=== PATIENT | male | born 1985 | race Caucasian/White ===

== ENCOUNTER 2017-07-13 14:44 | Inpatient (IN) | payer BC ==
[~2017-07-13] VITALS: Ht 182.9 cm; Wt 91.3 kg
[2017-07-13 14:54] VITALS: BP 167/84; PULSE 81; RESP 16; TEMP 98.4; O2SAT 99
[2017-07-13] MEDS ORDERED: ST JOHN S WORT (15:04)
[2017-07-13] MEDS ORDERED: MULTTAB67 PO (15:04)
[2017-07-13] MEDS ORDERED: VITA1000 PO (15:04)
[2017-07-13] MEDS ORDERED: FISHCAP4 PO (15:04)
[2017-07-13] MEDS ORDERED: SODIUM CHLOR 0.9% 1000 ML INJ 1,000 ML IV ONE (15:05)
[2017-07-13] MEDS ORDERED: PROCHLORPERAZINE INJ 10 MG/2 ML VIAL IVP ONE (15:15)
[2017-07-13] MEDS ORDERED: MORPHINE SULFATE 4 MG/ML INJ IV PUSH ONE (15:15)
[2017-07-13] MEDS ORDERED: diphenhydrAMINE HCL 50 MG/ML VIAL IVP ONE (15:15)
[2017-07-13] MEDS ORDERED: SODIUM CHLORIDE 0.9% FLUSH 10 ML FLUSH IVF PRN (15:15)
--- NOTE | 2017-07-13 15:18 | PD ---
HPI Chief Complaint: Headache Time Seen by Provider: 14:49 Travel History International Travel<30 days: No Contact w/Intl Traveler<30days: No Traveled to known affect area: No History of Present Illness HPI The patient is a 31-year-old male who presents to the emergency department for headache. The patient was driving yesterday, sitting in traffic , when he developed a headache. The patient's headache started gradually, is located posterior aspect, now radiates to the bifrontal temporal area behind the eyes bilaterally. The patient states he went home and took some ibuprofen with minimal relief. The patient awakened this morning and continued to have a headache. He now complains of some posterior neck pain of the trapezius area that radiates into the head. He states he was driving his car earlier today and started to develop photophobia. The patient took Excedrin one hour prior to arrival. Patient states he has no trauma to the head or neck, however, was digging a hole several days ago and thinks his posterior neck pain may be secondary to digging several days ago. The patient denies any known history of meningitis, encephalitis, subarachnoid hemorrhage, or migraine. The patient was seen in urgent care earlier today and it was noted that his temperature was 100.6 be a temporal scan and EMS was called to transfer him to the emergency department for possible meningitis/encephalitis. He denies any viral type symptoms, does complain of a headache with mild photophobia and some posterior neck pain, but denies any fever prior to the temporal scan. In the emergency department [facility] oral temperature was 98.6. The patient's , via phone, states the patient may have been exposed to ticks where he lives in [place] and was worried about Lyme disease. He does complain of generalized behind the knee, but denies any bulls eye rash. PFSH Past Medical History Integumentary: Yes (tinea versicolor) Past Surgical History Oral Surgery: Yes (dental surgery) Social History Alcohol Use: No Tobacco Use: No Substance Use: No Allergies-Medications (Allergen,Severity, Reaction): Coded Allergies: Penicillins (Verified Allergy, Unknown, 07/13/17) Reported Meds & Prescriptions Reported Meds & Active Scripts Active Reported Fish Oil + D3 (Fish Oil-Cholecalciferol) 1,200-1,000 Mg-Unit Cap 1 Cap PO DAILY [rene's wort] Multiple Vitamin 1 Tab 1 Tab PO DAILY Vitamin D-1000 (Cholecalciferol) 1,000 Unit Tab 1,000 Units PO DAILY Review of Systems Except as stated in HPI: all other systems reviewed are Neg General / Constitutional: No: Fever Eyes: Positive: Photophobia HENT: Positive: Headaches, Neck Pain Gastrointestinal: No: Nausea, Vomiting Skin: Positive Rash (history of tinea versicolor) Neurologic: Positive: Headache Physical Exam Narrative GENERAL: Awake, alert, pleasant 31-year-old male who appears his stated age and is in no acute respiratory distress. SKIN: Focused skin assessment warm/dry. Hyperlipidemia and it patches to the back consistent with a tinea versicolor versus vitiligo. HEAD: Atraumatic. Normocephalic. EYES: Pupils equal and round. Pupils are 5 mm bilateral and reactive. ENT: No nasal bleeding or discharge. Mucous membranes pink and moist. NECK: Trachea midline. No JVD. No true meningeal signs, patient is able to put his chin to his chest and look up. CARDIOVASCULAR: Regular rate and rhythm. No murmur appreciated. RESPIRATORY: No accessory muscle use. Clear to auscultation. Breath sounds equal bilaterally. GASTROINTESTINAL: Abdomen soft, non-tender, nondistended. MUSCULOSKELETAL: No obvious deformities. No clubbing. No cyanosis. No edema. NEUROLOGICAL: Awake and alert. No obvious cranial nerve deficits. Motor grossly within normal limits. Normal speech. Nonfocal. Oriented 4. Follows commands without difficulty. PSYCHIATRIC: Appropriate mood and affect; insight and judgment normal. Data Data Last Documented VS Orders Orders Complete Blood Count With Diff (07/13/17 15:05) Basic Metabolic Panel (Bmp) (07/13/17 15:05) Prothrombin Time / Inr (Pt) (07/13/17 15:05) Act Partial Throm Time (Ptt) (07/13/17 15:05) Ct Brain W/O Iv Contrast(Rout) (07/13/17 15:05) Ecg Monitoring (07/13/17 15:05) Iv Access Insert/Monitor (07/13/17 15:05) Oximetry (07/13/17 15:05) Sodium Chloride 0.9% Flush (Ns Flush) (07/13/17 15:15) Prochlorperazine Inj (Compazine Inj) (07/13/17 15:15) Diphenhydramine Inj (Benadryl Inj) (07/13/17 15:15) Sodium Chlor 0.9% 1000 Ml Inj (Ns 1000 M (07/13/17 15:05) Morphine Inj (Morphine Inj) (07/13/17 15:15) Ketorolac Inj (Toradol Inj) (07/13/17 17:30) Urinalysis - C+S If Indicated (07/13/17 17:49) Influenzae A/B Antigen (07/13/17 17:49) Chest, Single Ap (07/13/17 ) Lewc-Cdadd-Jyvz 325-50-40 Mg (Fioricet 3 (07/13/17 18:00) Lidocaine 1% Inj (50 Ml) (Xylocaine 1% I (07/13/17 18:00) Csf Cell Count + Differential (07/13/17 18:26) Glucose, Csf (07/13/17 18:26) Total Protein, Csf (07/13/17 18:26) Csf Culture And Gram Stain (07/13/17 18:26) Vancomycin Inj (Vancomycin Inj) (07/13/17 19:45) Ceftriaxone Inj (Rocephin Inj) (07/13/17 19:45) Acyclovir Inj (Zovirax Inj) (07/13/17 19:45) Csf Hsv I/Ii Dna,Pcr (07/13/17 19:35) Admit Order (Ed Use Only) (07/13/17 ) Isolation 08,20 (07/13/17 20:02) Labs Laboratory Tests Test 07/13/17 15:11 07/13/17 17:55 07/13/17 18:29 White Blood Count 8.2 TH/MM3 Red Blood Count 5.09 MIL/MM3 Hemoglobin 14.6 GM/DL Hematocrit 44.2 % Mean Corpuscular Volume 86.8 FL Mean Corpuscular Hemoglobin 28.6 PG Mean Corpuscular Hemoglobin Concent 32.9 % Red Cell Distribution Width 12.4 % Platelet Count 152 TH/MM3 Mean Platelet Volume 9.3 FL Neutrophils (%) (Auto) 85.5 % Lymphocytes (%) (Auto) 9.9 % Monocytes (%) (Auto) 3.8 % Eosinophils (%) (Auto) 0.3 % Basophils (%) (Auto) 0.5 % Neutrophils # (Auto) 7.1 TH/MM3 Lymphocytes # (Auto) 0.8 TH/MM3 Monocytes # (Auto) 0.3 TH/MM3 Eosinophils # (Auto) 0.0 TH/MM3 Basophils # (Auto) 0.0 TH/MM3 CBC Comment DIFF FINAL Differential Comment Prothrombin Time 10.6 SEC Prothromb Time International Ratio 1.0 RATIO Activated Partial Thromboplast Time 27.6 SEC Blood Urea Nitrogen 19 MG/DL Creatinine 1.00 MG/DL Random Glucose 111 MG/DL Calcium Level 8.8 MG/DL Sodium Level 136 MEQ/L Potassium Level 3.7 MEQ/L Chloride Level 103 MEQ/L Carbon Dioxide Level 25.8 MEQ/L Anion Gap 7 MEQ/L Estimat Glomerular Filtration Rate 87 ML/MIN Urine Color YELLOW Urine Turbidity CLEAR Urine pH 6.5 Urine Specific [place] 1.005 Urine Protein NEG mg/dL Urine Glucose (UA) NEG mg/dL Urine Ketones NEG mg/dL Urine Occult Blood NEG Urine Nitrite NEG Urine Bilirubin NEG Urine Leukocyte Esterase NEG Urine Squamous Epithelial Cells 0-5 /hpf Microscopic Urinalysis Comment CULT NOT INDICATED CSF Volume (Tube 1) 2.0 ML CSF Supernatant Color (tube 1) CLEAR CSF Gross Blood (Tube 1) 0 CSF Volume (Tube 2) 1.5 ML CSF Supernatant Color (tube 2) CLEAR CSF Gross Blood (Tube 2) 0 CSF Volume (Tube 3) 1.5 ML CSF Supernatant Color (tube 3) CLEAR CSF Gross Blood (Tube 3) 0 CSF Volume (Tube 4) 2.0 ML CSF Supernatant Color (tube 4) CLEAR CSF Gross Blood (Tube 4) 0 CSF WBC (Tube 4) 12 /MM3 CSF RBC (Tube 4) 5 /MM3 CSF Neutrophils 92 % CSF Lymphocytes 8 % CSF Monocytes 0 % CSF Eosinophils 0 % CSF Glucose 60 MG/DL CSF Total Protein 55.8 MG/DL CSF VDRL NON-REACTIVE Herpes Simplex Virus I DNA (PCR) Negative Herpes Simplex Virus II DNA (PCR) Negative MDM Medical Decision Making Medical Screen Exam Complete: Yes Emergency Medical Condition: Yes Medical Record Reviewed: Yes Interpretation(s) Laboratory Tests Test 07/13/17 15:11 White Blood Count 8.2 TH/MM3 Red Blood Count 5.09 MIL/MM3 Hemoglobin 14.6 GM/DL Hematocrit 44.2 % Mean Corpuscular Volume 86.8 FL Mean Corpuscular Hemoglobin 28.6 PG Mean Corpuscular Hemoglobin Concent 32.9 % Red Cell Distribution Width 12.4 % Platelet Count 152 TH/MM3 Mean Platelet Volume 9.3 FL Neutrophils (%) (Auto) 85.5 % Lymphocytes (%) (Auto) 9.9 % Monocytes (%) (Auto) 3.8 % Eosinophils (%) (Auto) 0.3 % Basophils (%) (Auto) 0.5 % Neutrophils # (Auto) 7.1 TH/MM3 Lymphocytes # (Auto) 0.8 TH/MM3 Monocytes # (Auto) 0.3 TH/MM3 Eosinophils # (Auto) 0.0 TH/MM3 Basophils # (Auto) 0.0 TH/MM3 CBC Comment DIFF FINAL Differential Comment Prothrombin Time 10.6 SEC Prothromb Time International Ratio 1.0 RATIO Activated Partial Thromboplast Time 27.6 SEC Blood Urea Nitrogen 19 MG/DL Creatinine 1.00 MG/DL Random Glucose 111 MG/DL Calcium Level 8.8 MG/DL Sodium Level 136 MEQ/L Potassium Level 3.7 MEQ/L Chloride Level 103 MEQ/L Carbon Dioxide Level 25.8 MEQ/L Anion Gap 7 MEQ/L Estimat Glomerular Filtration Rate 87 ML/MIN Differential Diagnosis Differential diagnosis includes tension headache, migraine, temporal arteritis, encephalitis, meningitis, subarachnoid hemorrhage, intracranial hemorrhage, intracranial tumor, viral syndrome. Narrative Course IV was established, labs were drawn and sent, and the patient was placed on cardiac telemetry monitoring and continuous pulse oximetry monitoring. CT of the brain was obtained. The patient was administered morphine, Compazine, Benadryl, and IV fluids. The patient is afebrile in the emergency department, and does not have any obvious meningeal signs, I doubt meningitis. If the patient did have meningitis, most likely would be viral as patient is nontoxic appearing. Laboratory evaluation is unremarkable, there is no leukopenia or leukocytosis. Platelets are unremarkable, I doubt tick borne disease. CT the brain appeared negative, awaiting radiology official read. I had a discussion with the patient regarding performing a lumbar puncture. Temperature was reevaluated, was 98.8. His headache went from a 5/10 to a 1/10. I had a discussion with the patient regarding the risk and benefits of lumbar puncture, he would like to hold on lumbar puncture. Therefore, the patient will be reevaluated for continuing headache, if it improves and there is no fever and patient does not want lumbar puncture, he will be discharged home. I had a discussion with the oncoming physician, Dr. Walker, at 4 PM in regards to reevaluation. Diagnosis Primary Impression: Cephalgia Qualified Codes: R51 - Headache Patient Instructions: General Instructions Additional Instructions: Please provide the patient a copy of his CT results and lab results at discharge. Follow-up with your primary physician. Return if symptoms worsen or progress. Disposition: DISCHARGE HOME Condition: Stable Matty Hannah MD Jul 13, 2017 15:18
[2017-07-13 15:23] LABS: AUTOMATED NEUTROPHIL # 7.1 TH/MM3 (1.8-7.7); BASOPHIL % 0.5 % (0.0-2.0); EOSINOPHIL % 0.3 % (0.0-4.0); HEMATOCRIT 44.2 % (39.0-51.0); LYMPH % 9.9 % (9.0-44.0); LYMPHOCYTE # 0.8 TH/MM3 (1.0-4.8); MEAN CELL VOLUME 86.8 FL (80.0-100.0); MEAN CORPUSCULAR HEMOGLOBIN 28.6 PG (27.0-34.0); MEAN CORPUSCULAR HGB CONC 32.9 % (32.0-36.0); MONO % 3.8 % (0.0-8.0); NEUT % 85.5 % (16.0-70.0); PLATELET COUNT 152 TH/MM3 (150-450); RED BLOOD COUNT 5.09 MIL/MM3 (4.50-5.90); RED CELL DISTRIBUTION WIDTH 12.4 % (11.6-17.2); WHITE BLOOD COUNT 8.2 TH/MM3 (4.0-11.0)
[2017-07-13 15:26] LABS: HEMO FLAGS DIFF FINAL
[2017-07-13 15:30] LABS: POTASSIUM 3.7 MEQ/L (3.5-5.1)
[2017-07-13 15:34] LABS: BICARBONATE 25.8 MEQ/L (21.0-32.0)
[2017-07-13 15:35] LABS: APTT (PATIENT) 27.6 SEC (24.3-30.1); PROTHROMBIN TIME - PATIENT 10.6 SEC (9.8-11.6)
[2017-07-13 15:45] VITALS: TEMP 98.8; O2SAT 98
--- NOTE | 2017-07-13 15:59 | RADRPT ---
EXAM DATE/TIME: 07/13/2017 15:27 [facility] COMPARISON: No previous studies available for comparison. INDICATIONS : Headache and light sensitivity. RADIATION DOSE: 57.88 CTDIvol (mGy) MEDICAL HISTORY : None SURGICAL HISTORY : None. ENCOUNTER: Initial ACUITY: 1 day PAIN SCALE: 5/10 LOCATION: cranial TECHNIQUE: Multiple contiguous axial images were obtained of the head. Using automated exposure control and adj ustment of the mA and/or kV according to patient size, radiation dose was kept as low as reasonably a chievable to obtain optimal diagnostic quality images. DICOM format image data is available electro nically for review and comparison. FINDINGS: CEREBRUM: The ventricles are normal for age. No evidence of midline shift, mass lesion, hemorrhage or acute in farction. No extra-axial fluid collections are seen. POSTERIOR FOSSA: The cerebellum and brainstem are intact. The 4th ventricle is midline. The cerebellopontine angle i s unremarkable. EXTRACRANIAL: The visualized portion of the orbits is intact. SKULL: The calvaria is intact. No evidence of skull fracture. CONCLUSION: Normal examination. Afshin Mercer MD on July 13, 2017 at 15:57 Board Certified Radiologist. This report was verified electronically.
[2017-07-13 16:51] VITALS: BP 160/81; PULSE 69; RESP 18; TEMP 99.2; O2SAT 98
[2017-07-13] MEDS ORDERED: KETOROLAC TROMETHAMINE 30 MG/ML (IVP) VIAL IV PUSH ONE (17:30)
[2017-07-13] MEDS ORDERED: LIDOCAINE HCL 1% 50 ML VIAL INFIL ONE (18:00)
[2017-07-13] MEDS ORDERED: ACETAMIN 325 MG/BUTALBITAL 50 MG/CAFFEINE 40 MG TAB PO ONE (18:00)
--- NOTE | 2017-07-13 18:06 | RADRPT ---
EXAM DATE/TIME: 07/13/2017 17:57 [facility] COMPARISON: No previous studies available for comparison. INDICATIONS : Fever. MEDICAL HISTORY : None. SURGICAL HISTORY : None. ENCOUNTER: Initial ACUITY: 1 day PAIN SCORE: 0/10 LOCATION: Bilateral chest FINDINGS: A single view of the chest demonstrates the lungs to be symmetrically aerated without evidence of mas s, infiltrate or effusion. The cardiomediastinal contours are unremarkable. Osseous structures are intact. CONCLUSION: No acute disease. Afshin Mercer MD on July 13, 2017 at 18:04 Board Certified Radiologist. This report was verified electronically.
[2017-07-13 18:11] LABS: BLOOD, URINE NEG (NEG); GLUCOSE,URINE NEG (NEG); KETONE, URINE NEG (NEG); NITRITE,URINE NEG (NEG); PH, URINE 6.5 (5.0-8.5)
[2017-07-13 18:34] LABS: SQUAMOUS EPITHELIAL CELL URINE 0-5 /hpf (0-5); URINE COLOR YELLOW (YELLW/STRAW)
[2017-07-13 18:35] LABS: COMMENT (UR) CULT NOT INDICATED; CULTURE IF INDICATED CULT NOT INDICATED
[2017-07-13 18:55] LABS: GROSS BLOOD TUBE #1 0 (0); GROSS BLOOD TUBE #2 0 (0); GROSS BLOOD TUBE #3 0 (0); GROSS BLOOD TUBE #4 0 (0); SUPERNATE COLOR TUBE #1 CLEAR (CLEAR); SUPERNATE COLOR TUBE #2 CLEAR (CLEAR); SUPERNATE COLOR TUBE #3 CLEAR (CLEAR); SUPERNATE COLOR TUBE #4 CLEAR (CLEAR); VOLUME TUBE # 2 1.5 ML; VOLUME TUBE # 3 1.5 ML; WBC TUBE #4 12 /MM3 (0-10)
[2017-07-13 19:26] VITALS: PULSE 87; RESP 16; O2SAT 97
[2017-07-13 19:26] LABS: CSF EOSINOPHILS 0 %; CSF LYMPHOCYTES 8 %; CSF MONOCYTES 0 %; CSF NEUTROPHILS 92 %
[2017-07-13] MEDS ORDERED: SODIUM CHLORIDE 0.9% IV ONE (19:45)
[2017-07-13] MEDS ORDERED: VANCOMYCIN INJ 1,000 MG in SODIUM CHLOR 0.9% 250 ML INJ 250 ML IV ONE (19:45)
[2017-07-13] MEDS ORDERED: ACYCLOVIR IV ONE (19:45)
[2017-07-13] MEDS ORDERED: cefTRIAXone INJ 2,000 MG in SODIUM CHLORIDE 0.9% INJ 100 ML IV ONE (19:45)
[2017-07-13 19:58] VITALS: BP 140/54; PULSE 77; RESP 16; O2SAT 97
--- NOTE | 2017-07-13 20:12 | PD ---
Physical Exam Narrative Patient signed out to me by Dr. Hannah. Please see his documentation for complete details. Briefly, patient is a 31-year-old male comes in complaining of fever and headache. He says this started last night. He says the headache is severe, mostly around the front and in his temples. He says he also is experiencing some neck stiffness. He denies any other symptoms. He denies cough, chest pain , shortness of breath, urinary symptoms, nausea, vomiting. While patient was here, he became febrile again to 101. He started to complain of severe headache once again. He was given a dose of Toradol and Fioricet. Patient did not experience any neurologic abnormalities on exam. Data Data Last Documented VS Vital Signs Date Time Temp Pulse Resp B/P (MAP) Pulse Ox O2 Delivery O2 Flow Rate FiO2 07/13/17 19:58 77 16 140/54 (82) 97 Room Air 07/13/17 16:51 99.2 Orders Orders Complete Blood Count With Diff (07/13/17 15:05) Basic Metabolic Panel (Bmp) (07/13/17 15:05) Prothrombin Time / Inr (Pt) (07/13/17 15:05) Act Partial Throm Time (Ptt) (07/13/17 15:05) Ct Brain W/O Iv Contrast(Rout) (07/13/17 15:05) Ecg Monitoring (07/13/17 15:05) Iv Access Insert/Monitor (07/13/17 15:05) Oximetry (07/13/17 15:05) Sodium Chloride 0.9% Flush (Ns Flush) (07/13/17 15:15) Prochlorperazine Inj (Compazine Inj) (07/13/17 15:15) Diphenhydramine Inj (Benadryl Inj) (07/13/17 15:15) Sodium Chlor 0.9% 1000 Ml Inj (Ns 1000 M (07/13/17 15:05) Morphine Inj (Morphine Inj) (07/13/17 15:15) Ketorolac Inj (Toradol Inj) (07/13/17 17:30) Urinalysis - C+S If Indicated (07/13/17 17:49) Influenzae A/B Antigen (07/13/17 17:49) Chest, Single Ap (07/13/17 ) Jjmu-Uvnfl-Bvap 325-50-40 Mg (Fioricet 3 (07/13/17 18:00) Lidocaine 1% Inj (50 Ml) (Xylocaine 1% I (07/13/17 18:00) Csf Cell Count + Differential (07/13/17 18:26) Glucose, Csf (07/13/17 18:26) Total Protein, Csf (07/13/17 18:26) Csf Culture And Gram Stain (07/13/17 18:26) Vancomycin Inj (Vancomycin Inj) (07/13/17 19:45) Ceftriaxone Inj (Rocephin Inj) (07/13/17 19:45) Acyclovir Inj (Zovirax Inj) (07/13/17 19:45) Csf Hsv I/Ii Dna,Pcr (07/13/17 19:35) Admit Order (Ed Use Only) (07/13/17 ) Isolation 08,20 (07/13/17 20:02) Place In Observation (07/13/17 ) Vital Signs (Adult) Q4H (07/13/17 20:02) Activity Oob With Assistance (07/13/17 20:02) Aws Architect / Telemetry .CONTINUOUS (07/13/17 20:02) Diet Heart Healthy (07/14/17 Breakfast) Sodium Chlor 0.9% 1000 Ml Inj (Ns 1000 M (07/13/17 20:02) Sodium Chloride 0.9% Flush (Ns Flush) (07/13/17 20:15) Sodium Chloride 0.9% Flush (Ns Flush) (07/13/17 21:00) Basic Metabolic Panel (Bmp) (07/14/17 06:00) Complete Blood Count With Diff (07/14/17 06:00) Naloxone Inj (Narcan Inj) (07/13/17 20:15) Vancomycin Consult Pharmacy (Vancomycin (07/13/17 20:15) Ceftriaxone Inj (Rocephin Inj) (07/14/17 08:00) Acyclovir Inj (Zovirax Inj) (07/14/17 04:00) Dexamethasone Inj (Decadron Inj) (07/13/17 20:15) ^ Other Nursing Orders (07/13/17 20:11) Consult Infectious Disease (07/13/17 ) Labs Laboratory Tests Test 07/13/17 15:11 07/13/17 17:55 07/13/17 18:29 White Blood Count 8.2 TH/MM3 Red Blood Count 5.09 MIL/MM3 Hemoglobin 14.6 GM/DL Hematocrit 44.2 % Mean Corpuscular Volume 86.8 FL Mean Corpuscular Hemoglobin 28.6 PG Mean Corpuscular Hemoglobin Concent 32.9 % Red Cell Distribution Width 12.4 % Platelet Count 152 TH/MM3 Mean Platelet Volume 9.3 FL Neutrophils (%) (Auto) 85.5 % Lymphocytes (%) (Auto) 9.9 % Monocytes (%) (Auto) 3.8 % Eosinophils (%) (Auto) 0.3 % Basophils (%) (Auto) 0.5 % Neutrophils # (Auto) 7.1 TH/MM3 Lymphocytes # (Auto) 0.8 TH/MM3 Monocytes # (Auto) 0.3 TH/MM3 Eosinophils # (Auto) 0.0 TH/MM3 Basophils # (Auto) 0.0 TH/MM3 CBC Comment DIFF FINAL Differential Comment Prothrombin Time 10.6 SEC Prothromb Time International Ratio 1.0 RATIO Activated Partial Thromboplast Time 27.6 SEC Blood Urea Nitrogen 19 MG/DL Creatinine 1.00 MG/DL Random Glucose 111 MG/DL Calcium Level 8.8 MG/DL Sodium Level 136 MEQ/L Potassium Level 3.7 MEQ/L Chloride Level 103 MEQ/L Carbon Dioxide Level 25.8 MEQ/L Anion Gap 7 MEQ/L Estimat Glomerular Filtration Rate 87 ML/MIN Urine Color YELLOW Urine Turbidity CLEAR Urine pH 6.5 Urine Specific [place] 1.005 Urine Protein NEG mg/dL Urine Glucose (UA) NEG mg/dL Urine Ketones NEG mg/dL Urine Occult Blood NEG Urine Nitrite NEG Urine Bilirubin NEG Urine Leukocyte Esterase NEG Urine Squamous Epithelial Cells 0-5 /hpf Microscopic Urinalysis Comment CULT NOT INDICATED CSF Volume (Tube 1) 2.0 ML CSF Supernatant Color (tube 1) CLEAR CSF Gross Blood (Tube 1) 0 CSF Volume (Tube 2) 1.5 ML CSF Supernatant Color (tube 2) CLEAR CSF Gross Blood (Tube 2) 0 CSF Volume (Tube 3) 1.5 ML CSF Supernatant Color (tube 3) CLEAR CSF Gross Blood (Tube 3) 0 CSF Volume (Tube 4) 2.0 ML CSF Supernatant Color (tube 4) CLEAR CSF Gross Blood (Tube 4) 0 CSF WBC (Tube 4) 12 /MM3 CSF RBC (Tube 4) 5 /MM3 CSF Neutrophils 92 % CSF Lymphocytes 8 % CSF Monocytes 0 % CSF Eosinophils 0 % MDM Supervised Visit with MEGA: No Narrative Course Patient covered with Rocephin, vancomycin, acyclovir. LP performed revealing 12 white blood cells and 92 neutrophils. He'll be admitted for further management. Procedures Procedure Narrative LUMBAR PUNCTURE: The patient was placed in the left lateral decubitus position. The lumbar area of the back was prepped with Betadine and sterilely draped. The L3 -- L4 interspace was infiltrated with 1% lidocaine plain. Number 20 gauge LP needle was placed in the interspace. Opening pressure deferred. Number 8 milliliters of clear CSF were obtained. Patient tolerated procedure well. Diagnosis Primary Impression: Meningitis Admitting Information Admitting Physician Requests: Admit Patient Instructions: General Instructions Condition: Stable Marisol Lam MD Jul 13, 2017 20:12
[2017-07-13] MEDS ORDERED: NALOXONE HCL 0.4 MG/ML AMP IV PRN (20:15)
[2017-07-13] MEDS ORDERED: SODIUM CHLORIDE 0.9% FLUSH 10 ML FLUSH IV FLUSH PRN (20:15)
[2017-07-13] MEDS: SODIUM CHLOR 0.9% 1000 ML INJ 1,000 ML IV SCH (20:42)
[2017-07-13] MEDS: SODIUM CHLORIDE 0.9% FLUSH 10 ML FLUSH IV FLUSH SCH (20:42)
[2017-07-13] MEDS ORDERED: Vancomycin Consult Pharmacy 1 EA OTHER SCH (21:00)
[2017-07-13] MEDS ORDERED: DEXAMETHASONE SOD PHOS 20 MG/5 ML VIAL IV PUSH SCH (21:00)
[2017-07-13 23:07] VITALS: BP 150/64
[2017-07-14] MEDS: ACETAMINOPHEN 325 MG TAB PO PRN ×2 (02:14→09:14)
[2017-07-14 02:16] VITALS: TEMP 102.2
[2017-07-14] MEDS: DEXAMETHASONE SOD PHOS 20 MG/5 ML VIAL IV SCH ×4 (02:31→22:28)
[2017-07-14] MEDS: VANCOMYCIN INJ 1,400 MG in SODIUM CHLORID 0.9% 500 ML INJ 500 ML IV SCH ×4 (02:31→23:17)
[2017-07-14] MEDS ORDERED: DEXAMETHASONE SOD PHOS 4 MG/ML VIAL IV SCH (03:00)
[2017-07-14] MEDS ORDERED: ACYCLOVIR INJ 700 MG in SODIUM CHLORIDE 0.9% INJ 100 ML IV SCH (05:00)
[2017-07-14] MEDS: ACYCLOVIR INJ 700 MG in SODIUM CHLORIDE 0.9% INJ 100 ML IV SCH ×4 (05:01→23:18)
[2017-07-14] MEDS: SODIUM CHLOR 0.9% 1000 ML INJ 1,000 ML IV SCH ×3 (05:01→23:17)
[2017-07-14 05:05] VITALS: TEMP 98.3
[2017-07-14 07:05] LABS: AUTOMATED NEUTROPHIL # 5.3 TH/MM3 (1.8-7.7); BASOPHIL % 0.2 % (0.0-2.0); EOSINOPHIL % 0.1 % (0.0-4.0); HEMATOCRIT 41.9 % (39.0-51.0); HEMO FLAGS DIFF FINAL; LYMPH % 9.5 % (9.0-44.0); LYMPHOCYTE # 0.6 TH/MM3 (1.0-4.8); MEAN CELL VOLUME 86.5 FL (80.0-100.0); MEAN CORPUSCULAR HEMOGLOBIN 29.1 PG (27.0-34.0); MEAN CORPUSCULAR HGB CONC 33.7 % (32.0-36.0); MONO % 0.7 % (0.0-8.0); NEUT % 89.5 % (16.0-70.0); PLATELET COUNT 147 TH/MM3 (150-450); RED BLOOD COUNT 4.85 MIL/MM3 (4.50-5.90); RED CELL DISTRIBUTION WIDTH 11.9 % (11.6-17.2); WHITE BLOOD COUNT 5.9 TH/MM3 (4.0-11.0)
[2017-07-14 07:18] LABS: POTASSIUM 3.8 MEQ/L (3.5-5.1)
[2017-07-14 07:26] LABS: BICARBONATE 25.2 MEQ/L (21.0-32.0)
[2017-07-14] MEDS: cefTRIAXone INJ 2,000 MG in SODIUM CHLORIDE 0.9% INJ 100 ML IV SCH ×2 (07:41→20:00)
[2017-07-14 08:00] VITALS: BP 142/82; PULSE 73; RESP 18; TEMP 99.6; O2SAT 98
[2017-07-14] MEDS: SODIUM CHLORIDE 0.9% FLUSH 10 ML FLUSH IV FLUSH SCH ×2 (09:00→22:28)
--- NOTE | 2017-07-14 10:08 | HHI.HP ---
[facility] Service [place] [facility] Primary Care Physician No Primary Care Physician Admission Diagnosis bacterial meningitis Diagnoses: (1) Acute bacterial meningitis Diagnosis: Principal Chief Complaint: Headache Travel History International Travel<30 Days: No Contact w/Intl Traveler <30 Da: No Traveled to Known Affected Are: No History of Present Illness 31-year-old male being admitted for suspected acute bacterial meningitis. Patient reports being in his usual state of health until about 2 days ago when he experienced a headache while driving on a trip down to an [employer] in [place] , took some ibuprofen and went to sleep later that night. The next morning patient noted that his headache persisted at the same level and took another dose of ibuprofen to no avail and only experienced worsening of his headache. While driving he became dizzy, nauseated with slightly blurred vision causing him to char puller. His was worried and prompted him to go to an urgent care where he was apparently noted to have a fever of 100.6 and then sent over to the emergency room. Patient reports that his headache has been radiating all over but does focus predominantly on the "temples." Noted some photophobia with no other modifying factors. His headache did improve with some Compazine and Benadryl in the emergency room but eventually the patient did spike a fever and was thus admitted for suspected acute bacterial meningitis with CSF showing a predominance of neutrophilia. Patient reports that he was digging at his home and was using a hose to flush out some of the mud. He reports having a stiff neck but he thinks this might of been from the active digging. Denies any other recent outdoor water exposure. Reports frequent chigger bites, no ticks found, denies any rashes otherwise. He does report visiting a barracks about 2 months ago, denies any foreign travel in the last 12 months, and denies being exposed to any actively sick contact who did travel in the last year. Review of Systems Except as stated in HPI: all other systems reviewed are Neg Past Family Social History Past Medical History hospitalization for PNA as a teenager Allergies: Coded Allergies: Penicillins (Verified Allergy, Unknown, 07/13/17) Family History HTN Social History Lives with and children at home currently, works as an manufacturing engineer assembly, finished with [employer] for years ago, does occasionally travel to bases and goes in and out of hotels a lot Physical Exam Vital Signs Vital Signs Date Time Temp Pulse Resp B/P (MAP) Pulse Ox O2 Delivery O2 Flow Rate FiO2 07/14/17 05:05 98.3 07/14/17 02:16 102.2 07/13/17 23:07 97 150/64 (92) 98 07/13/17 19:58 77 16 140/54 (82) 97 Room Air 07/13/17 19:26 87 16 97 Room Air 07/13/17 16:51 99.2 69 18 160/81 (107) 98 Room Air 07/13/17 15:45 98 Room Air 07/13/17 15:45 98.8 07/13/17 14:54 98.4 81 16 167/84 (111) 99 Physical Exam VS: Reviewed GENERAL: No acute distress, lying in bed SKIN: Warm and dry. Has a small circular chigger/mosquito bite on popliteal area of right knee. EYES: Pupils equal and round. No scleral icterus. No injection or drainage. ENT: No nasal bleeding or discharge. Mucous membranes pink and moist. CARDIOVASCULAR: Regular rate and rhythm. no murmurs RESPIRATORY: No accessory muscle use. Clear to auscultation. Breath sounds equal bilaterally. GASTROINTESTINAL: Abdomen soft, non-tender, nondistended. Hepatic and splenic margins not palpable. MUSCULOSKELETAL: Extremities without clubbing, cyanosis, or edema. No obvious deformities. grossly intact ROM with 5/5 strength in upper and lower extremities proximally. Has good range of motion of the neck including full flexion and extension, has negative Kernig and Brudzinski signs bilaterally NEUROLOGICAL: Awake and alert. No facial droop nor slurred speech noted. Intact gait, negative Romberg, +2 patellar reflexes bilaterally PSYCHIATRIC: Appropriate mood and affect; insight and judgment normal. Laboratory Laboratory Tests Test 07/13/17 15:11 07/13/17 17:55 07/13/17 18:29 07/14/17 06:10 White Blood Count 8.2 5.9 Red Blood Count 5.09 4.85 Hemoglobin 14.6 14.1 Hematocrit 44.2 41.9 Mean Corpuscular Volume 86.8 86.5 Mean Corpuscular Hemoglobin 28.6 29.1 Mean Corpuscular Hemoglobin Concent 32.9 33.7 Red Cell Distribution Width 12.4 11.9 Platelet Count 152 147 Mean Platelet Volume 9.3 9.8 Neutrophils (%) (Auto) 85.5 89.5 Lymphocytes (%) (Auto) 9.9 9.5 Monocytes (%) (Auto) 3.8 0.7 Eosinophils (%) (Auto) 0.3 0.1 Basophils (%) (Auto) 0.5 0.2 Neutrophils # (Auto) 7.1 5.3 Lymphocytes # (Auto) 0.8 0.6 Monocytes # (Auto) 0.3 0.0 Eosinophils # (Auto) 0.0 0.0 Basophils # (Auto) 0.0 0.0 CBC Comment DIFF FINAL DIFF FINAL Differential Comment Prothrombin Time 10.6 Prothromb Time International Ratio 1.0 Activated Partial Thromboplast Time 27.6 Blood Urea Nitrogen 19 14 Creatinine 1.00 1.00 Random Glucose 111 136 Calcium Level 8.8 8.0 Sodium Level 136 138 Potassium Level 3.7 3.8 Chloride Level 103 104 Carbon Dioxide Level 25.8 25.2 Anion Gap 7 9 Estimat Glomerular Filtration Rate 87 87 Urine Color YELLOW Urine Turbidity CLEAR Urine pH 6.5 Urine Specific [place] 1.005 Urine Protein NEG Urine Glucose (UA) NEG Urine Ketones NEG Urine Occult Blood NEG Urine Nitrite NEG Urine Bilirubin NEG Urine Leukocyte Esterase NEG Urine Squamous Epithelial Cells 0-5 Microscopic Urinalysis Comment CULT NOT INDICATED CSF Volume (Tube 1) 2.0 CSF Supernatant Color (tube 1) CLEAR CSF Gross Blood (Tube 1) 0 CSF Volume (Tube 2) 1.5 CSF Supernatant Color (tube 2) CLEAR CSF Gross Blood (Tube 2) 0 CSF Volume (Tube 3) 1.5 CSF Supernatant Color (tube 3) CLEAR CSF Gross Blood (Tube 3) 0 CSF Volume (Tube 4) 2.0 CSF Supernatant Color (tube 4) CLEAR CSF Gross Blood (Tube 4) 0 CSF WBC (Tube 4) 12 CSF RBC (Tube 4) 5 CSF Neutrophils 92 CSF Lymphocytes 8 CSF Monocytes 0 CSF Eosinophils 0 CSF Glucose 60 CSF Total Protein 55.8 Date/Time Source Procedure Growth Status 07/13/17 18:29 Cerebral Spinal Fluid Lumbar Puncture Gram Stain - Final Resulted 07/13/17 18:29 Cerebral Spinal Fluid Lumbar Puncture CSF Culture - Preliminary NO GROWTH IN 24 HOURS. Resulted 07/13/17 17:55 Nasal Washing Influenza Types A,B Antigen (JILLIAN) - Final NEGATIVE FOR FLU A AND B ANTIGEN.... Complete Result Diagram: 07/14/17 0610 07/14/17 0610 Imaging Last Impressions Head CT 07/13/17 1505 Signed Impressions: Service Date/Time: Thursday, July 13, 2017 15:27 - CONCLUSION: Normal examination. Afshin Mercer MD Chest X-Ray 07/13/17 0000 Signed Impressions: Service Date/Time: Thursday, July 13, 2017 17:57 - CONCLUSION: No acute disease. Afshin Mercer MD I independently reviewed the chest x-ray and see no acute abnormalities Caprini VTE Risk Assessment Caprini VTE Risk Assessment: No/Low Risk (score <= 1) Caprini Risk Assessment Model Point Value = 1 Point Value = 2 Point Value = 3 Point Value = 5 Age 41-60 Minor surgery BMI > 25 kg/m2 Swollen legs Varicose veins or History of unexplained or recurrent spontaneous Oral contraceptives or hormone replacement Sepsis (< 1 month) Serious lung disease, including pneumonia (< 1 month) Abnormal pulmonary function Acute myocardial infarction Congestive heart failure (< 1 month) History of inflammatory bowel disease Medical patient at bed rest Age 61-74 Arthroscopic surgery Major open surgery (> 45 min) Laparoscopic surgery (> 45 min) Malignancy Confined to bed (> 72 hours) Immobilizing plaster cast Central venous access Age >= 75 History of VTE Family history of VTE Factor V Leiden Prothrombin [id number] Lupus anticoagulant Anticardiolipin antibodies Elevated serum homocysteine Heparin-induced thrombocytopenia Other congenital or acquired thrombophilia Stroke (< 1 month) Elective arthroplasty Hip, pelvis, or leg fracture Acute spinal cord injury (< 1 month) Prophylaxis Regimen Total Risk Factor Score Risk Level Prophylaxis Regimen 0-1 Low Early ambulation 2 Moderate Order ONE of the following: *Sequential Compression Device (SCD) *Heparin 5000 units SQ BID 3-4 Higher Order ONE of the following medications: *Heparin 5000 units SQ TID *Enoxaparin/Lovenox 40 mg SQ daily (WT < 150 kg, CrCl > 30 mL/min) *Enoxaparin/Lovenox 30 mg SQ daily (WT < 150 kg, CrCl > 10-29 mL/min) *Enoxaparin/Lovenox 30 mg SQ BID (WT < 150 kg, CrCl > 30 mL/min) AND/OR *Sequential Compression Device (SCD) 5 or more Highest Order ONE of the following medications: *Heparin 5000 units SQ TID (Preferred with Epidurals) *Enoxaparin/Lovenox 40 mg SQ daily (WT < 150 kg, CrCl > 30 mL/min) *Enoxaparin/Lovenox 30 mg SQ daily (WT < 150 kg, CrCl > 10-29 mL/min) *Enoxaparin/Lovenox 30 mg SQ BID (WT < 150 kg, CrCl > 30 mL/min) AND *Sequential Compression Device (SCD) Assessment and Plan Problem List: (1) Acute bacterial meningitis ICD Code: G00.9 - Bacterial meningitis, unspecified Status: Acute Assessment and Plan 31-year-old white male being admitted for suspected acute bacterial meningitis, Clinically stable by the time of my history intake and examination. Febrile headache - suspect acute bacterial meningitis given neutrophilia on CSF , ordered blood cultures, continue antibiotics of ceftriaxone and vancomycin as this would empirically cover strep pneumo and Neisseria meningitidis, continue dexamethasone and acyclovir. Pending CSF cultures and Gram stain, ordering acid -fast bacilli stain for CSF as well given exposure to closed environments. IVFs. CT unremarkable. Tylenol prn. If fever persists, consider ID consult along w/ MRI w/ contrast of brain. Physician Certification 2 Midnight Certification Type: Admission for Inpatient Services Order for Inpatient Services The services are ordered in accordance with Medicare regulations or non- Medicare payer requirements, as applicable. In the case of services not specified as inpatient-only, they are appropriately provided as inpatient services in accordance with the 2-midnight benchmark. Estimated LOS (days): 3 3 days is the estimated time the patient will need to remain in the hospital, assuming treatment plan goals are met and no additional complications. Post-Hospital Plan: Home Harmeet Saldivar MD Jul 14, 2017 10:07
[2017-07-14 12:00] VITALS: BP 142/89; PULSE 76; RESP 18; TEMP 97.5; O2SAT 99
[2017-07-14] MEDS: LACTOBACILLUS ACIDOPHILUS 1 GM PACKET PO SCH ×2 (12:21→17:22)
[2017-07-14 16:00] VITALS: BP 130/77; PULSE 64; RESP 18; TEMP 98.1; O2SAT 97
--- NOTE | 2017-07-14 18:04 | PD.CONS ---
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 HE WAS DRIVING DOWN ON WEDNESDAY FROM [place] TO [facility] WHEN HE STARTED TO HAVE SEVERE HEADACHE AND SINUS PRESSURE WITH LOW GRADE FEVER. HE WENT INTO TO URGENT CARE AND WAS INSTRUCTED TO COME TO ER. HE HAD POSITIVE PHOTOPHOBIA. HE DENIES COUGH OR NVD. NO ABD PAIN. HE HAS NOT HAD ANY ILLNESS RECENTLY. HE RAN A [employer] ON WEDNESDAY. 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 HE IS AROUND HORSES AND FARMLAND IN HIS HOME. HE IS ORIGINALLY FROM [place]. HE HAD A CSF EXAM AND WBC WAS 12, HE HAD ELEVATED GLUCOSE. CULTURES HAVE BEEN NEGATIVE. ID CONSULTED. Review of Systems Constitutional: COMPLAINS OF: Fever, Chills, DENIES: Fatigue Endocrine: DENIES: Polyuria Eyes: COMPLAINS OF: Eye pain, DENIES: Eye inflammation Ears, nose, mouth, throat: COMPLAINS OF: Sinus Pain, DENIES: Tinnitus, Hearing loss, Nasal discharge, Ear Pain, Running Nose Respiratory: DENIES: Apneas, Cough Cardiovascular: DENIES: Palpitations Gastrointestinal: DENIES: Black stools Genitourinary: DENIES: Urinary frequency Musculoskeletal: COMPLAINS OF: Stiffness, DENIES: Back pain Neurologic: DENIES: Localized weakness Psychiatric: DENIES: Confusion, Depression Except as stated in HPI: all other systems reviewed are Neg Past Family Social History Allergies: Coded Allergies: Penicillins (Verified Allergy, Unknown, 07/13/17) Past Medical History Past Medical History hospitalization for PNA as a teenager Past Surgical History none Reported Medications none Active Ordered Medications he is currently on vancomycin / acyclovir/ Family History Family History HTN Social History 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 SKIN: No rashes, ecchymoses or lesions. Cool and dry. HEAD: Atraumatic. Normocephalic. No temporal or scalp tenderness. EYES: Pupils equal round and reactive. Extraocular motions intact. No scleral icterus. No injection or drainage. ENT: Nose without bleeding, purulent drainage or septal hematoma. Throat without erythema, tonsillar hypertrophy or exudate. Uvula midline. Airway patent. NECK: Trachea midline. No JVD or lymphadenopathy. Supple, nontender, no meningeal signs. CARDIOVASCULAR: Regular rate and rhythm without murmurs, gallops, or rubs. RESPIRATORY: Clear to auscultation. Breath sounds equal bilaterally. No wheezes , rales, or rhonchi. GASTROINTESTINAL: Abdomen soft, non-tender, nondistended. No hepato-splenomegaly , or palpable masses. No guarding. MUSCULOSKELETAL: Extremities without clubbing, cyanosis, or edema. No joint tenderness, effusion, or edema noted. No calf tenderness. Negative Homans sign bilaterally. NEUROLOGICAL: Awake and alert. Cranial nerves II through XII intact. Motor and sensory grossly within normal limits. Five out of 5 muscle strength in all muscle groups. Normal speech. Laboratory Laboratory Tests Test 07/13/17 17:55 07/13/17 18:29 07/14/17 06:10 Urine Color YELLOW Urine Turbidity CLEAR Urine pH 6.5 Urine Specific [place] 1.005 Urine Protein NEG Urine Glucose (UA) NEG Urine Ketones NEG Urine Occult Blood NEG Urine Nitrite NEG Urine Bilirubin NEG Urine Leukocyte Esterase NEG Urine Squamous Epithelial Cells 0-5 Microscopic Urinalysis Comment CULT NOT INDICATED CSF Volume (Tube 1) 2.0 CSF Supernatant Color (tube 1) CLEAR CSF Gross Blood (Tube 1) 0 CSF Volume (Tube 2) 1.5 CSF Supernatant Color (tube 2) CLEAR CSF Gross Blood (Tube 2) 0 CSF Volume (Tube 3) 1.5 CSF Supernatant Color (tube 3) CLEAR CSF Gross Blood (Tube 3) 0 CSF Volume (Tube 4) 2.0 CSF Supernatant Color (tube 4) CLEAR CSF Gross Blood (Tube 4) 0 CSF WBC (Tube 4) 12 CSF RBC (Tube 4) 5 CSF Neutrophils 92 CSF Lymphocytes 8 CSF Monocytes 0 CSF Eosinophils 0 CSF Glucose 60 CSF Total Protein 55.8 White Blood Count 5.9 Red Blood Count 4.85 Hemoglobin 14.1 Hematocrit 41.9 Mean Corpuscular Volume 86.5 Mean Corpuscular Hemoglobin 29.1 Mean Corpuscular Hemoglobin Concent 33.7 Red Cell Distribution Width 11.9 Platelet Count 147 Mean Platelet Volume 9.8 Neutrophils (%) (Auto) 89.5 Lymphocytes (%) (Auto) 9.5 Monocytes (%) (Auto) 0.7 Eosinophils (%) (Auto) 0.1 Basophils (%) (Auto) 0.2 Neutrophils # (Auto) 5.3 Lymphocytes # (Auto) 0.6 Monocytes # (Auto) 0.0 Eosinophils # (Auto) 0.0 Basophils # (Auto) 0.0 CBC Comment DIFF FINAL Differential Comment Blood Urea Nitrogen 14 Creatinine 1.00 Random Glucose 136 Calcium Level 8.0 Sodium Level 138 Potassium Level 3.8 Chloride Level 104 Carbon Dioxide Level 25.2 Anion Gap 9 Estimat Glomerular Filtration Rate 87 Date/Time Source Procedure Growth Status 07/14/17 10:20 Blood Peripheral Aerobic Blood Culture Pending Received 07/14/17 10:20 Blood Peripheral Anaerobic Blood Culture Pending Received 07/13/17 18:29 Cerebral Spinal Fluid Lumbar Puncture Acid Fast Stain Pending Received 07/13/17 18:29 Cerebral Spinal Fluid Lumbar Puncture Mycobacterial Culture Pending Received 07/13/17 17:55 Nasal Washing Influenza Types A,B Antigen (JILLIAN) - Final NEGATIVE FOR FLU A AND B ANTIGEN.... Complete Result Diagram: 07/14/17 0610 07/14/17 0610 Assessment and Plan Problem List: (1) Cephalgia ICD Codes: R51 - Headache Status: Acute Plan: Better today (2) Meningitis ICD Codes: G03.9 - Meningitis, unspecified Status: Acute Plan: appears to be viral Can dc all antibiotics No need for acyclovir follow hsv would check for [place] will fu seen exam with dr salazar Problem Qualifiers (1) Cephalgia: Qualified Codes: R51 - Headache Lili Gonzales REPLACER Jul 14, 2017 18:04
[2017-07-14 20:00] VITALS: BP 130/74; PULSE 78; RESP 20; TEMP 97.5; O2SAT 98
[2017-07-15] VITALS: BP 124/71; PULSE 60; RESP 20; TEMP 96.4; O2SAT 98
[2017-07-15] MEDS ORDERED: VANCOMYCIN TROUGH ONE (01:45)
[2017-07-15] MEDS: DEXAMETHASONE SOD PHOS 20 MG/5 ML VIAL IV SCH ×2 (02:54→08:52)
[2017-07-15 04:00] VITALS: BP 125/71; PULSE 59; RESP 20; TEMP 96.5; O2SAT 99
[2017-07-15] MEDS: SODIUM CHLORIDE 0.9% FLUSH 10 ML FLUSH IV FLUSH SCH (07:58)
[2017-07-15 08:00] VITALS: BP 136/86; PULSE 85; RESP 20; TEMP 96.6; O2SAT 100
[2017-07-15] MEDS: cefTRIAXone INJ 2,000 MG in SODIUM CHLORIDE 0.9% INJ 100 ML IV SCH (08:00)
--- NOTE | 2017-07-15 08:19 | HHI.IDPN ---
Subjective Subjective Remarks Feels better Anxious to be discharged Some headaches No fevers > 24 hrs Antibiotics Ceftriaxone Lines Peripheral line Past Medical History Pneumonia Allergies: Coded Allergies: Penicillins (Verified Allergy, Unknown, 07/13/17) Review of Systems Constitutional Constitutional Remarks No more fevers Objective . Vital Signs Date Time Temp Pulse Resp B/P (MAP) Pulse Ox O2 Delivery O2 Flow Rate FiO2 07/15/17 04:00 96.5 59 20 125/71 (89) 99 07/15/17 00:00 96.4 60 20 124/71 (88) 98 07/14/17 20:00 97.5 78 20 130/74 (92) 98 07/14/17 16:00 98.1 64 18 130/77 (94) 97 07/14/17 12:00 97.5 76 18 142/89 (106) 99 . Laboratory Tests Test 07/13/17 15:11 07/14/17 06:10 White Blood Count 8.2 TH/MM3 5.9 TH/MM3 Red Blood Count 5.09 MIL/MM3 4.85 MIL/MM3 Hemoglobin 14.6 GM/DL 14.1 GM/DL Hematocrit 44.2 % 41.9 % Mean Corpuscular Volume 86.8 FL 86.5 FL Mean Corpuscular Hemoglobin 28.6 PG 29.1 PG Mean Corpuscular Hemoglobin Concent 32.9 % 33.7 % Red Cell Distribution Width 12.4 % 11.9 % Platelet Count 152 TH/MM3 147 TH/MM3 Mean Platelet Volume 9.3 FL 9.8 FL Neutrophils (%) (Auto) 85.5 % 89.5 % Lymphocytes (%) (Auto) 9.9 % 9.5 % Monocytes (%) (Auto) 3.8 % 0.7 % Eosinophils (%) (Auto) 0.3 % 0.1 % Basophils (%) (Auto) 0.5 % 0.2 % Neutrophils # (Auto) 7.1 TH/MM3 5.3 TH/MM3 Lymphocytes # (Auto) 0.8 TH/MM3 0.6 TH/MM3 Monocytes # (Auto) 0.3 TH/MM3 0.0 TH/MM3 Eosinophils # (Auto) 0.0 TH/MM3 0.0 TH/MM3 Basophils # (Auto) 0.0 TH/MM3 0.0 TH/MM3 CBC Comment DIFF FINAL DIFF FINAL Differential Comment Laboratory Tests Test 07/13/17 15:11 07/14/17 06:10 Blood Urea Nitrogen 19 MG/DL 14 MG/DL Creatinine 1.00 MG/DL 1.00 MG/DL Random Glucose 111 MG/DL 136 MG/DL Calcium Level 8.8 MG/DL 8.0 MG/DL Sodium Level 136 MEQ/L 138 MEQ/L Potassium Level 3.7 MEQ/L 3.8 MEQ/L Chloride Level 103 MEQ/L 104 MEQ/L Carbon Dioxide Level 25.8 MEQ/L 25.2 MEQ/L Anion Gap 7 MEQ/L 9 MEQ/L Estimat Glomerular Filtration Rate 87 ML/MIN 87 ML/MIN Microbiology Date/Time Source Procedure Growth Status 07/14/17 10:20 Blood Peripheral Aerobic Blood Culture Pending Received 07/14/17 10:20 Blood Peripheral Anaerobic Blood Culture Pending Received 07/14/17 10:10 Blood Peripheral Aerobic Blood Culture Pending Received 07/14/17 10:10 Blood Peripheral Anaerobic Blood Culture Pending Received 07/13/17 18:29 Cerebral Spinal Fluid Lumbar Puncture Acid Fast Stain Pending Received 07/13/17 18:29 Cerebral Spinal Fluid Lumbar Puncture Mycobacterial Culture Pending Received 07/13/17 18:29 Cerebral Spinal Fluid Lumbar Puncture Gram Stain - Final Resulted 07/13/17 18:29 Cerebral Spinal Fluid Lumbar Puncture CSF Culture - Preliminary NO GROWTH IN 24 HOURS. Resulted 07/13/17 17:55 Nasal Washing Influenza Types A,B Antigen (JILLIAN) - Final NEGATIVE FOR FLU A AND B ANTIGEN.... Complete Physical Exam GENERAL: This is a well-nourished, well-developed patient, in no apparent distress. SKIN: No rashes, ecchymoses or lesions. Cool and dry. HEAD: Atraumatic. Normocephalic. No temporal or scalp tenderness. EYES: Pupils equal round and reactive. Extraocular motions intact. No scleral icterus. No injection or drainage. ENT: Nose without bleeding, purulent drainage or septal hematoma. Throat without erythema, tonsillar hypertrophy or exudate. Uvula midline. Airway patent. NECK: Trachea midline. No JVD or lymphadenopathy. Supple, nontender, no meningeal signs. CARDIOVASCULAR: Regular rate and rhythm without murmurs, gallops, or rubs. RESPIRATORY: Clear to auscultation. Breath sounds equal bilaterally. No wheezes , rales, or rhonchi. GASTROINTESTINAL: Abdomen soft, non-tender, nondistended. No hepato-splenomegaly , or palpable masses. No guarding. MUSCULOSKELETAL: Extremities without clubbing, cyanosis, or edema. No joint tenderness, effusion, or edema noted. No calf tenderness. Negative Homans sign bilaterally. NEUROLOGICAL: Awake and alert. Cranial nerves II through XII intact. Motor and sensory grossly within normal limits. Five out of 5 muscle strength in all muscle groups. Normal speech. Assessment & Plan Diagnosis: (1) Meningitis, aseptic ICD Codes: G03.0 - Nonpyogenic meningitis Status: Acute Plan: CSF cultures negative so far CSF and clinical picture suggestive of viral meningitis Stop antibiotics/ antivirals Symptomatic treatment Can be discharged from ID point of view. Should follow up with PCP within the week Roseann Anderson MD Jul 15, 2017 08:19
--- NOTE | 2017-07-15 08:59 | HHI.DCPOC ---
Discharge Care Plan Diagnosis: (1) Cephalgia (2) Meningitis, aseptic Goals to Promote Your Health * To prevent worsening of your condition and complications * To maintain your health at the optimal level Directions to Meet Your Goals Take your medications as prescribed Follow your dietary instruction Follow activity as directed Keep your appointments as scheduled Take your immunizations and boosters as scheduled If your symptoms worsen call your PCP, if no PCP go to Urgent Care Center or Emergency Room Smoking is Dangerous to Your Health. Avoid second hand smoke Call the 24-hour hour crisis hotline for domestic abuse at Dusty Martino Jul 15, 2017 08:59
[2017-07-15] MEDS: LACTOBACILLUS ACIDOPHILUS 1 GM PACKET PO SCH (09:00)
--- NOTE | 2017-07-15 09:02 | HHI.DS ---
Discharge Summary Admission Date Jul 14, 2017 at 11:18 Discharge Date: Jul 15, 2017 Admitting Diagnosis Headache Aseptic meningitis (1) Meningitis, aseptic ICD Code: G03.0 - Nonpyogenic meningitis Status: Acute (2) Cephalgia ICD Code: R51 - Headache Status: Acute Procedures Lumbar puncture Brief History - From Admission 31-year-old male being admitted for suspected acute bacterial meningitis. Patient reports being in his usual state of health until about 2 days ago when he experienced a headache while driving on a trip down to an [employer] in [place] , took some ibuprofen and went to sleep later that night. The next morning patient noted that his headache persisted at the same level and took another dose of ibuprofen to no avail and only experienced worsening of his headache. While driving he became dizzy, nauseated with slightly blurred vision causing him to focus puller. His was worried and prompted him to go to an urgent care where he was apparently noted to have a fever of 100.6 and then sent over to the emergency room. Patient reports that his headache has been radiating all over but does focus predominantly on the "temples." Noted some photophobia with no other modifying factors. His headache did improve with some Compazine and Benadryl in the emergency room but eventually the patient did spike a fever and was thus admitted for suspected acute bacterial meningitis with CSF showing a predominance of neutrophilia. Patient reports that he was digging at his home and was using a hose to flush out some of the mud. He reports having a stiff neck but he thinks this might of been from the active digging. Denies any other recent outdoor water exposure. Reports frequent chigger bites, no ticks found, denies any rashes otherwise. He does report visiting a barracks about 2 months ago, denies any foreign travel in the last 12 months, and denies being exposed to any actively sick contact who did travel in the last year. CBC/BMP: 07/14/17 0610 07/14/17 0610 Significant Findings Laboratory Tests Test 07/13/17 15:11 07/13/17 17:55 07/13/17 18:29 07/14/17 06:10 Neutrophils (%) (Auto) 85.5 % (16.0-70.0) 89.5 % (16.0-70.0) Lymphocytes # (Auto) 0.8 TH/MM3 (1.0-4.8) 0.6 TH/MM3 (1.0-4.8) Blood Urea Nitrogen 19 MG/DL (7-18) Random Glucose 111 MG/DL (74-106) 136 MG/DL (74-106) Estimat Glomerular Filtration Rate 87 ML/MIN (>89) 87 ML/MIN (>89) CSF WBC (Tube 4) 12 /MM3 (0-10) CSF RBC (Tube 4) 5 /MM3 (NONE) CSF Total Protein 55.8 MG/DL (15.0-45.0) Platelet Count 147 TH/MM3 (150-450) Calcium Level 8.0 MG/DL (8.5-10.1) Imaging Last Impressions Head CT 07/13/17 1505 Signed Impressions: Service Date/Time: Thursday, July 13, 2017 15:27 - CONCLUSION: Normal examination. Afshin Mercer MD Chest X-Ray 07/13/17 0000 Signed Impressions: Service Date/Time: Thursday, July 13, 2017 17:57 - CONCLUSION: No acute disease. Afshin Mercer MD Hospital Course 31-year-old male who recently presented to hospital because of 2 day history of cephalgia in which was not relieved with ibuprofen. Headache was severe and continue to worsen with associated symptoms of dizzy, nauseated, blurred vision. Patient went to an urgent care center and found to have febrile illness with cephalgia and was sent to the emergency department for further evaluation. Patient had workup done and it was suspected by the ER physician that patient had bacterial meningitis. Lumbar puncture was performed and findings are indicative of aseptic meningitis. Patient was started on empirical antibiotics with Rocephin, vancomycin, acyclovir. Infectious disease evaluated patient and confirm aseptic meningitis. They recommend discontinuation of antibiotics and antiviral medication. They indicated that patient should have symptomatic treatment only and may be discharged to follow- up with her primary medical doctor. Patient was examined and evaluated day and he states that he is doing much better. Headache is resolved. Patient is very eager to be discharged. Pt Condition on Discharge: Stable Discharge Disposition: Discharge Home Discharge Time: > 30 minutes Discharge Instructions DIET: Follow Instructions for: As Tolerated, No Restrictions Activities you can perform: Regular-No Restrictions Follow up Referrals: PCP Follow-up Continued Medications: Cholecalciferol (Vitamin D-1000) 1,000 Unit Tab 1000 UNITS PO DAILY for Nutritional Supplement, #1 BOTTLE 0 Refills Fish Oil-Cholecalciferol (Fish Oil + D3) 1,200-1,000 Mg-Unit Cap 1 CAP PO DAILY for Nutritional Supplement, #30 CAP 0 Refills Multiple Vitamin (Multiple Vitamin) 1 Tab 1 TAB PO DAILY for Nutritional Supplement, TAB 0 Refills [rene's wort] () Dusty Martino Jul 15, 2017 09:02
[2017-07-15 09:41] LABS: HSV 1,PCR Negative (Negative)
== END 2017-07-15 10:20 | disposition home or self-care (01) | DRG 99 ==
LOC: PHED 14:44 → PHEDA 20:03 → PH3B 22:58 → OBSVTOIN 07-14 11:18
PROVIDERS: ADMIT Hospitalist; ATTEND Hospitalist
PROC: 009U3ZX Drainage of Spinal Canal, Percutaneous Approach, Diagnostic (ICD-10-PCS; principal; 2017-07-13)
DX: G03.0 Nonpyogenic meningitis (principal)
CPT/HCPCS: 62270; 70450; 71010; 80048; 81001; 82945; 84157; 85025; 85610; 85730; 86592; 87015; 87040; 87070; 87116; 87205; 87206; 87529; 87804; 89051; 96361; 96365; 96368; 96375; J0133; J0696; J0780; J1100; J1200; J1885; J2270; J3370; J7030; J7040; J7050